=== PATIENT | female | born 2000 | race Caucasian/White ===

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

== ENCOUNTER 2021-09-25 21:59 | Emergency (ER) | payer MEDICAID ==
[~2021-09-25] VITALS: Ht 167 cm; Wt 65.0 kg
[~2021-09-25 21:59] MED LIST: CEFD300C3 PO
--- OUTSIDE RECORDS SUMMARY | 2021-09-25 22:05 | XMS REPORT | Clinical Summary ---
Author Author [facility] ity Organization [facility] ity Address Unknown Phone Unavailable Care Team Providers Care House Father Name Role Phone PCP Unavailable Allergies Not on File Medications Not on file Active Problems Not on file Social History Date Tobacco Use Types Packs/Day Years Used Never Smoker Smokeless Tobacco: Never Used Comments Alcohol Use Standard Drinks/Week No 0 (1 standard drink = 0.6 o z pure alcohol) Sex Assigned at Date Recorded Not on file Last Filed Vital Signs Not on file Plan of Treatment Not on file Results Not on filefrom Last 3 Months
--- NOTE | 2021-09-25 22:44 | ED General ---
General Chief Complaint: COVID19 Suspect/Confirmed Stated Complaint: FEVER/COVID EXPOSURE/HEADACHE/BODYACHES Nursing Triage Note: Patient states she has been on quarantine for the past two weeks secondary to 2 exposures to covid-19. Patient states tonight at approx. 6pm she began experiencing a headache and states he took ibuprofen at 6pm. Source of Information: Patient History of Present Illness Date Seen by Provider: Sep 25, 2021 Time Seen by Provider: 22:17 Initial Comments PT ARRIVES VIA POV FROM HOME PT HAS BEEN EXPOSED TO COVID RECENTLY MULTIPLE TIMES , AND HAS BEEN ON QUARA NTINE X 5 DAYS, UNTIL YESTERDAY. 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 PT HAS NOT HAD COVID-19 VACCINE OR FLU VACCINE PCP: KIMMY-LEOPOLDO Allergies and Home Medications Allergies Coded Allergies: No Known Drug Allergies (Unverified , 02/02/21) Patient Home Medication List Home Medication List Reviewed: Yes Cefdinir (Cefdinir) 300 Mg Capsule, 300 MG PO BID Prescribed by: CORIE ZAPATA on 02/02/212219 Ondansetron (Ondansetron Odt) 4 Mg Tab.rapdis, 4 MG PO Q4H Prescribed by: SHY CHE on 09/25/21 2252 Review of Systems Review of Systems Constitutional: see HPI, dizziness, fever EENTM: no symptoms reported Respiratory: no symptoms reported Cardiovascular: no symptoms reported Gastrointestinal: see HPI; No abdominal pain, No diarrhea; nausea; No vomiting Genitourinary: no symptoms reported Musculoskeletal: see HPI Skin: no symptoms reported Psychiatric/Neurological: Headache Hematologic/Lymphatic: No Symptoms Reported Immunological/Allergic: no symptoms reported Past Zstkxlp-Prhchs-Cazoxc Hx Patient Social History Tobacco Use?: No Substance use?: No Alcohol Use?: No Immunizations Up To Date First/Initial COVID19 Vaccinat: november Second COVID19 Vaccination Shahzad: moderna Seasonal Allergies Seasonal Allergies: No Past Medical History Surgery/Hospitalization HX: anxiety Surgeries: Yes (ELBOW, URETER) Orthopedic, Renal Respiratory: No Cardiac: No Neurological: No Sexually Transmitted Disease: No HIV/AIDS: No Genitourinary: Yes Gastrointestinal: No Musculoskeletal: Yes (LEFT ELBOW SURGERY) Endocrine: No HEENT: No Cancer: No Psychosocial: No Blood Disorders: No Physical Exam Vital Signs Vital Signs - First Documented Capillary Refill : Less Than 3 Seconds Height, Weight, BMI Height: '" Weight: lbs. oz. kg; 23.00 BMI Method: General Appearance: No Apparent Distress, WD/WN, Other (DOES NOT APPEAR ILL OR TO BE IN ANY DISCOMFORT OR DISTRESS) HEENT: PERRL/EOMI, TMs Normal, Normal ENT Inspection, Pharynx Normal, Moist Mucous Membranes Neck: Full Range of Motion, Normal Inspection, Non Tender, Supple Respiratory: Normal Breath Sounds, No Accessory Muscle Use, No Respiratory Distress Cardiovascular: Regular Rate, Rhythm, No Edema, No JVD, No Murmur, Normal Peripheral Pulses Gastrointestinal: Non Tender, Soft Back: Normal Inspection, No CVA Tenderness Extremity: Normal Inspection, Normal Range of Motion, Non Tender, No Calf Tenderness, No Pedal Edema Neurologic/Psychiatric: Alert, Oriented x3, No Motor/Sensory Deficits, Normal 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, 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 Norm as Tested Skin: Normal Color, Warm/Dry; No Rash Progress/Results/Core Measures Suspected Sepsis SIRS Temperature: Pulse: 108 Respiratory Rate: 18 Blood Pressure 113 /82 Mean: 92 Results/Orders Lab Results Laboratory Tests Test 09/25/21 22:14 Range/Units Influenza Type A (RT-PCR) Not Detected Not Detecte Influenza Type B (RT-PCR) Not Detected Not Detecte SARS-CoV-2 RNA (RT-PCR) Not Detected Not Detecte My Orders Orders - SHY CHE DO Covid 19 Inhouse Test (09/25/21 22:17) Influenza A And B By Pcr (09/25/21 22:17) Isolation Central Supply Req (09/25/21 22:17) Vital Signs/I&O 09/25/21 09/25/21 09/25/21 22:22 22:22 22:56 Temp 37.3 Pulse 108 89 Resp 18 18 B/P (MAP) 113/82 (92) 113/82 Pulse Ox 97 97 O2 Delivery Room Air Room Air Room Air Capillary Refill : Less Than 3 Seconds Blood Pressure Mean: 92 Progress Note : Progress Note PLACED IN ISOLATION ROOM PPE WORN AT ALL TIMES COVID AND FLU TESTING DONE PT ADVISED OF NEED FOR CONTINUED QUARANTINE SHE HAS HAD KNOWN EXPOSURE AND NOW IS HAVING SYMPTOMS, AND ADVISED TO FOLLOW UP AT LOCAL TESTING FACILITY / [facility] IN 2-3 DAYS FOR RE-TESTING. Departure Impression Primary Impression: Person under investigation for COVID-19 Additional Impressions: Close exposure to COVID-19 virus Viral syndrome Disposition: HOME, SELF-CARE Condition: Stable Departure-Patient Inst. Decision time for Depature: 22:50 Referrals: [facility] (PCP/Family) Primary Care Physician Patient Instructions: COVID-19 Overview, Cough, Runny Nose, and the Common Cold, Preventing the Spread of an Infectious Disease Add. Discharge Instructions: TYLENOL AND MOTRIN NEEDED FOR PAIN OR FEVER LOTS OF CLEAR LIQUIDS--WATER, BROTH, JELLO, GATORADE BLAND DIET FOLLOW UP WITH [facility] IN 2-3 DAYS FOR FURTHER CARE AND POSSIBLE RE-TESTING FOR COVID QUARANTINE UNTIL YOU ARE RETESTED AND CLEARED BY All discharge instructions reviewed with patient and/or family. Voiced understanding. Scripts Ondansetron (Ondansetron Odt) 4 Mg Tab.rapdis 4 MG PO Q4H for Nausea/Vomiting, #10 TAB Prov: SHY CHE DO 09/25/21 SHY CHE DO Sep 25, 2021 22:44
[2021-09-25] MEDS ORDERED: ONDA4TAB11 PO (22:52)
[2021-09-25 22:56] VITALS: BP 113/82
== END 2021-09-25 22:57 | disposition home or self-care (01) ==
LOC: EDUNIT# 21:59 → ER 22:01
DX: B34.9 Viral infection, unspecified (principal); Z20.822 Contact with and (suspected) exposure to COVID-19
CPT/HCPCS: 87636; 99283

== ENCOUNTER 2021-10-28 17:33 | Emergency (ER) | payer MEDICAID ==
[~2021-10-28] VITALS: Ht 167 cm; Wt 68.0 kg
[~2021-10-28 17:33] MED LIST changes: +ONDA4TAB11 PO
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
[2021-10-28] MEDS ORDERED: IBUPROFEN 600 MG (MOTRIN) TAB PO ONE (18:00)
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
[2021-10-28] MEDS ORDERED: METH-732 PO (18:25)
[2021-10-28 18:58] VITALS: BP 107/74
== END 2021-10-28 18:54 | disposition home or self-care (01) ==
LOC: EDUNIT# 17:33 → ER 17:36
DX: S20.212A Contusion of left front wall of thorax, initial encounter (principal); S70.212A Abrasion, left hip, initial encounter; M23.92 Unspecified internal derangement of left knee; V89.2XXA Person injured in unspecified motor-vehicle accident, traffic, initial encounter
CPT/HCPCS: 71046; 72170; 73562

== ENCOUNTER 2022-01-27 22:18 | Emergency (ER) | payer MEDICAID ==
[~2022-01-27] VITALS: Ht 165.1 cm; Wt 65.8 kg
[~2022-01-27 22:18] MED LIST changes: +METH-732 PO
[2022-01-27 23:20] VITALS: BP 103/70
[2022-01-27] MEDS ORDERED: RX-MUPIROCIN (BACTROBAN) 2% OINT 22 GM TUBE TOP STA (23:40)
[2022-01-27] MEDS ORDERED: CEPH500C PO (23:45)
[2022-01-27] MEDS ORDERED: CEPHALEXIN 250 MG (KEFLEX) CAP PO ONE (23:45)
--- NOTE | 2022-01-27 23:45 | ED Integumentary General ---
General Chief Complaint: Bite-Animal/Human/Insect Stated Complaint: POSSIBLE SPIDER BITE ON LEG Nursing Triage Note: PT AMB TO FT 1 W C/O POSS SPIDER BITE TO LEFT LOWER EXT. PT A&OX4. Source: patient Exam Limitations: no limitations History of Present Illness Date Seen by Provider: January 27, 2022 Time Seen by Provider: 23:17 Allergies and Home Medications Allergies Coded Allergies: No Known Drug Allergies (Unverified , 02/02/21) Patient Home Medication List Cefdinir (Cefdinir) 300 Mg Capsule, 300 MG PO BID Prescribed by: CORIE ZAPATA on 02/02/210 Methocarbamol (Methocarbamol) 750 Mg Tablet, 750 MG PO Q6-8HR Prescribed by: HENRY CORNELIUS on 10/28/21 182 Ondansetron (Ondansetron Odt) 4 Mg Tab.rapdis, 4 MG PO Q4H Prescribed by: SHY CHE on 09/25/21 2252 Past Vdqowse-Qjtrrt-Iiiadl Hx Patient Social History Tobacco Use?: No Use of E-Cig and/or Vaping dev: No Substance use?: No Alcohol Use?: No Immunizations Up To Date First/Initial COVID19 Vaccinat: UNKNOWN DATE Second COVID19 Vaccination Shahzad: UNKNOWN DATE Third COVID19 Vaccination Date: N/A COVID19 Vaccine [employer] [facility] Seasonal Allergies Seasonal Allergies: No Past Medical History Surgery/Hospitalization HX: anxiety Surgeries: Yes (ELBOW, URETER) Orthopedic, Renal Respiratory: No Cardiac: No Neurological: No Sexually Transmitted Disease: No HIV/AIDS: No Genitourinary: Yes Gastrointestinal: No Musculoskeletal: Yes (LEFT ELBOW SURGERY) Endocrine: No HEENT: No Cancer: No Psychosocial: No Blood Disorders: No Physical Exam Vital Signs Vital Signs - First Documented 01/27/22 23:20 Temp 36.2 Pulse 78 Resp 20 B/P (MAP) 103/70 (81) Pulse Ox 97 O2 Delivery Room Air Capillary Refill : Less Than 3 Seconds Progress/Results/Core Measures Results/Orders My Orders Orders - KASSANDRA WREN APRN Rx-Mupirocin 2% Oint (Rx-Bactroban) (01/27/22 23:40) Cephalexin Capsule (Keflex Capsule) (01/27/22 23:45) Vital Signs/I&O 5/18/22 23:20 Temp 36.2 Pulse 78 Resp 20 B/P (MAP) 103/70 (81) Pulse Ox 97 O2 Delivery Room Air Blood Pressure Mean: 81 Departure Impression Primary Impression: Erythema of lower extremity Disposition: HOME, SELF-CARE Condition: Stable Departure-Patient Inst. Decision time for Depature: 23:42 Referrals: [facility] (PCP/Family) Primary Care Physician Patient Instructions: Insect Bites and Stings (DC) Add. Discharge Instructions: Plan: 1. Wash with mild soap and water, pat dry, apply thin layer of Mupirocin ointment twice a day. 2. Monitor for any redness extending past demarcated [place]. Follow up with your doctor or return if symptoms worsen. 3. Take Cephalexin as directed and complete full course if symptoms improve. 4. Monitor for any blue/dark discoloration in center of redness, this could indicate a brown recluse bite. 5. Apply ice 20 minutes at a time to help reduce/swelling pain. 6. May take Tylenol or Ibuprofen as needed for pain per package. 7. Return for any new, concerning, or worsening symptoms. All discharge instructions reviewed with patient and/or family. Voiced understanding. Scripts Cephalexin (Cephalexin) 500 Mg Capsule 500 MG PO TID for 7 Days, #21 CAP 0 Refills Prov: KASSANDRA WREN APRN 01/27/22 KASSANDRA WREN APRN January 27, 2022 23:45
== END 2022-01-27 23:58 | disposition home or self-care (01) ==
LOC: EDUNIT# 22:18 → ER 22:20
DX: L53.9 Erythematous condition, unspecified (principal)
CPT/HCPCS: 99283